=== PATIENT | female | born 1975 | race Caucasian/White ===

== ENCOUNTER 2018-09-19 01:57 | Observation (INO) | payer MEDICAID, OTHER ==
[2018-09-19 02:29] LABS: Bilirubin Negative (Negative); Blood, Urine Negative (Negative); Clarity CLEAR (Clear); Glucose, Urine (Dipstick) >=1000 mg/dL (Negative); Leukocyte Negative (Negative); Nitrite Negative (Negative); Protein, Urine (Dipstick) Negative (Neg-Trace); Urobilinogen 0.2 mg/dL (0.2-1.0)
[2018-09-19] MEDS ORDERED: HYDROcodone/Acetaminophen 5/325 mg Tablet ONE (02:42)
[2018-09-19 03:06] LABS: #Basophils 0.1 thou/uL (0.0-0.2); #Eosinphils 0.3 thou/uL (0.0-0.7); #Lymphocytes 3.1 thou/uL (1.20-3.40); #Monocytes 0.9 thou/uL (0.11-0.59); #Neutrophils 5.8 thou/uL (1.40-6.50); %Basophils 0.6 % (0.0-1.0); %Eosinophils 2.7 % (0.0-10.0); %Lymphocytes 31.2 % (21.0-51.0); %Monocytes 8.5 % (0.0-10.0); Hemoglobin 13.2 g/dL (12.0-16.0); Mean Corpuscular HGB CONC 33.7 g/dL (32.0-36.0); Mean Corpuscular Volume 86.3 fL (78.0-98.0); Mean Platelet Volume 7.6 fL (7.4-10.4); Platelet Count 193 thou/uL (130-400); RBC Distribution Width 13.2 % (11.5-14.5); Red Blood Cell (RBC) Count 4.54 mill/uL (4.20-5.40); White Blood Cell (WBC) Count 10.1 thou/uL (4.8-10.8)
[2018-09-19 03:44] LABS: ALT (SGPT) 55 U/L (8-55); AST (SGOT) 48 U/L (5-34); Albumin 4.1 g/dL (3.5-5.0); Alkaline Phosphatase 72 U/L (40-150); Anion Gap 15 mmol/L (10-20); BUN (Urea Nitrogen) 14 mg/dL (7.0-18.7); Bilirubin, Total 0.4 mg/dL (0.2-1.2); CK (CPK) 43 U/L (29-168); Calc. Creatinine Clearance 0 mL/min (70-130); Calcium 8.9 mg/dL (7.8-10.44); Carbon Dioxide 19 mmol/L (22-29); Chloride 102 mmol/L (98-107); Estimated GFR-MDRD 62; Globulin 2.9 g/dL (2.4-3.5); Glucose 401 mg/dL (70-105); Lipase 75 U/L (8-78); Potassium 3.9 mmol/L (3.5-5.1); Sodium 132 mmol/L (136-145)
--- NOTE | 2018-09-19 04:49 | PDOC.FPRHP ---
- History of Present Illness Chief Complaint: Chest Pain History of Present Illness: This is a 43 yo female with a pmh of HTN, HLD, 3 previous MIs with 4 stents placed who presents to the ED with a cc of chest pain. She reports the chest pain started ~4 hours [employer]. She reports taking 3 nitro with no relief from the pain. She reports the pain starts in her chest and radiates to her arm. She describes the pain as some fat person sitting on her chest and rates the pain as an 8/10. She endorses SOB but denies nausea or diaphoresis. She requested IV opioid pain medication multiple times during our interview. She endorses leaving AMA from multiple hospitals including the most recent hospitlalization in [place] where she reports she had a positive stress test. She also reports leaving on one occasion, 3 hours after receiving tPA. ED Course: En rout to hospital 4mg morphine, 4mg zofran, 324mg aspirin, - Allergies/Adverse Reactions Allergies Allergy/AdvReac Type Severity Reaction Status Date / Time amoxicillin Allergy Verified 09/19/18 07:22 cephalexin [From Keflex] Allergy Verified 09/19/18 07:22 ketorolac [From Toradol] Allergy Verified 09/19/18 07:22 nalbuphine [From Nubain] Allergy Verified 09/19/18 07:22 naproxen Allergy Verified 09/19/18 07:22 nitroglycerin Allergy Verified 09/19/18 07:22 [From Nitro-Bid] penicillin G Allergy Verified 09/19/18 07:22 vancomycin Allergy Verified 09/19/18 07:22 - Home Medications Medication Instructions Recorded Confirmed Type Atorvastatin Calcium 40 mg PO HS 09/19/18 09/19/18 History Insulin Detemir [Levemir Flextouch] 30 unit SQ DAILY 09/19/18 09/19/18 History Lisinopril 10 mg PO DAILY 09/19/18 09/19/18 History Pregabalin [Lyrica] 300 mg PO BID 09/19/18 09/19/18 History metFORMIN HCl [Metformin HCl] 1,000 mg PO BID 09/19/18 09/19/18 History - History PMHx: HTN, DM2, HLD, CAD PSHx: Stents placed FHx: Mother and father have history of [place] Social: Smoking history, now vaping - Review of Systems General: denies: fever/chills, weight/appetite/sleep changes, night sweats, fatigue Eyes: denies: eye pain, vision changes ENT: denies: nasal congestion, rhinorrhea Respiratory: reports: shortness of breath. denies: cough, congestion, exercise intolerance Cardiovascular: reports: chest pain. denies: palpitation, edema Gastrointestinal: denies: nausea, vomiting, diarrhea Genitourinary: denies: incontinence, dysuria Skin: denies: rashes, lesions Musculoskeletal: denies: pain, tenderness Neurological: denies: numbness, syncope Psychological: denies: anxiety, depression - Vital signs BP: 125/76 HR: 74 RR: 18 Tmax: 98.3 Pox: 98% on ra Wt: 98 kg - Physical Exam Constitutional: NAD, awake, alert and oriented, well developed HEENT: normocephalic and atraumatic, PERRLA, EOMI, grossly normal vision, grossly normal hearing, MMM Neck: FROM, trachea midline, no JVD Chest: no-tender to palpation, no lesions Heart: RRR, normal S1/S2, no murmurs/rubs/gallops Lungs: CTAB, no respiratory distress, no wheezing Abdomen: soft, non-tender, bowel sounds present Musculoskeletal: normal structure Neurological: CN II-XII intact Skin: capillary refill <2 seconds Heme/Lymphatic: no unusual bruising or bleeding, no purpura FMR H&P: Results - Labs Result Diagrams: 09/19/18 02:57 09/19/18 02:55 Lab results: WBC 10.1 thou/uL (4.8-10.8) 09/19/18 02:57 Hgb 13.2 g/dL (12.0-16.0) 09/19/18 02:57 Hct 39.2 % (36.0-47.0) 09/19/18 02:57 MCV 86.3 fL (78.0-98.0) 09/19/18 02:57 Plt Count 193 thou/uL (130-400) 09/19/18 02:57 Neutrophils % 57.0 % (42.0-75.0) 09/19/18 02:57 Sodium 132 mmol/L (136-145) L 09/19/18 02:55 Potassium 3.9 mmol/L (3.5-5.1) 09/19/18 02:55 Chloride 102 mmol/L (98-107) 09/19/18 02:55 Carbon Dioxide 19 mmol/L (22-29) L 09/19/18 02:55 BUN 14 mg/dL (7.0-18.7) 09/19/18 02:55 Creatinine 0.99 mg/dL (0.6-1.1) 09/19/18 02:55 Glucose 401 mg/dL (70-105) H 09/19/18 02:55 Calcium 8.9 mg/dL (7.8-10.44) 09/19/18 02:55 Total Bilirubin 0.4 mg/dL (0.2-1.2) 09/19/18 02:55 AST 48 U/L (5-34) H 09/19/18 02:55 ALT 55 U/L (8-55) 09/19/18 02:55 Alkaline Phosphatase 72 U/L (40-150) 09/19/18 02:55 Creatine Kinase 43 U/L (29-168) 09/19/18 02:55 Serum Total Protein 7.0 g/dL (6.0-8.3) 09/19/18 02:55 Albumin 4.1 g/dL (3.5-5.0) 09/19/18 02:55 Lipase 75 U/L (8-78) 09/19/18 02:55 Urine Ketones Negative mg/dL (Negative) 09/19/18 02:06 Urine Blood Negative (Negative) 09/19/18 02:06 Urine Nitrite Negative (Negative) 09/19/18 02:06 Ur Leukocyte Esterase Negative (Negative) 09/19/18 02:06 - EKG Interpretation EKG: NSR, no st elevations or depressions - Radiology Interpretation Chest x-ray Status: image reviewed by me (No acute intrathoracic process) FMR H&P: A/P - Plan This is a 43 yo female with a pmh of HTN, HLD, DM2, CAD with hx of stents Atypical chest pain rule out -Admit to [facility] -Heart score 3 -EKG shows no ST elevation or depression -Troponin negative x1, continue to trend x3 -Nitro PRN for pain -Plan to obtain records regarding positive stress test from [place] -Consult cardiolgy -Pt repeatedly requests IV opioid medication, allergies to NSAIDS and has received ~19 morphine equivalents prior to admission. Pt refuses tylenol for pain and requests additional medication to Bristol 5 offered. -Morphine PRN for breakthrough pain IDDM 2 -Poorly controlled, pt admits to pepsi addiction -Restart home medications -ACHS glu checks -Pending A1c -Will titrate insulin during hospital stay HTN -Continue home meds HLD -Continue home meds CAD -Continue home meds Hx of DVT and PEs -SCD for prophylaxis in light of possible cath, would transition if no plan for cardiac intervention Code: Full Prophylaxis: SCDs Family: None at bedside Fluids: NS 100 ml/hr Diet: NPO Disposition: home in 1-2 days PCP: Dr. Lee at [facility] in [place] FMR H&P: Upper Level - Plan Date/Time: 09/19/18 [id number] ISherry. Constantine Yu MD have evaluated this patient and agree with findings/plan as outlined by leadership intern resident. Pertinent changes/additions are listed here. 43 y/o F w/ PMHx of [place] x3 and CAD s/p stent placement x4 w/ positive stress test last week at outside hospital where she left AMA prior to cardiac catheterization. Characterized as L-sided chest pressure w/ radiation into the left arm, jaw, and into back 810. Also reports some associated SOB. No nausea , no diaphoresis. Pt reports she goes to the ER 1-2x a week for her chest pain back home. Trop <0.010 BG - 434 CXR NAD EKG NSR, non-specific ST-segment abnormalities. No T-wave inversions PE: Gen: Smiling, joking, laughing during interview Cards: RRR, no murmurs. Pulm: CTA b/l 66 y/o M w/: 1. Atypical Chest Pain (HEART 3) - Will admit to tele/obs with continuous cardiac monitoring - ASA given in ER - Check FLP and start on high intensity statin - Check A1c and TSH - Cont. to trend cardiac enzymes x 3 - Will touch base with cardiology in the AM for further recs given significant cardiac hx and reported positive stress last week w/o cardiac catheterization. As patient is unable to tell us which hospital she had this done at last week, we are unable to obtain these records. - I do have some concerns that patient is expressing drug seeking behavior given her multiple requests for IV narcotic pain medications from both the admitting team and ER physician, allergies to NSAIDs, and no improvement in sxs with any PO meds (nitro, Bristol). Pt also reportedly w/ positive stress last week at a hospital in [place] where she left AMA before cardiac cath, but unable to tell us which hospital this was so we can get records. She has received 4 mg of morphine, 100 mcg of fentanyl while en-route to the hospital and an additional Bristol 5 in the ER for a total of 19 MME's over the past few hours. 2. IDDM - Pt w/ elevated BG levels w/o signs of DKA/HHS - Nilesh check A1c and will place on home long acting insulin regimen w/ SSI for meals as I have concerns about her outpatient compliance 3. Other Chronic Medical Problems per leadership intern note Addendum - Attending - Attending Attestation Date/Time: 09/19/18 1410 I personally evaluated the patient and discussed the management with Dr. Scott and Rosemarie. See separate note. I agree with the History, Examination, Assessment and Plan documented above with any addition or exceptions noted below.
--- NOTE | 2018-09-19 06:38 | PDOC.EVN ---
Event Note - Event Note Event Note: Date/Time: 09/19/18 0633 I personally evaluated the patient and discussed the management with Aimee Grove. H&P pending I agree with the History, Examination, Assessment and Plan as discussed. Patient has refused non opioid pain meds. had some relief with morphine earlier. She reports near weekly Er visits in [place] for chest pain and reports always receiving morphine. She was upset that we were not giving her more morphine. We have ordered morphine on her admission orders which is part of our routine chest pain admission orders. She is content with this.
[2018-09-19 06:49] LABS: Troponin I Less than 0.010 ng/mL (< 0.028)
[2018-09-19 07:06] VITALS: BP 122/86; TEMP 97.9; BMI 38.7
[2018-09-19] MEDS ORDERED: Acetaminophen 325 MG TAB PO PRN (07:23)
[2018-09-19] MEDS ORDERED: Ondansetron ODT 4 MG TAB SL PRN (07:23)
[2018-09-19] MEDS ORDERED: Ondansetron PF 4 MG/2 ML Vial IVP PRN ×2 (07:23→07:36)
[2018-09-19] MEDS ORDERED: Insulin Glargine 20 UNITS in Pre-Filled Syringe 1 EACH SC SCH (07:36)
[2018-09-19] MEDS ORDERED: Sodium Chloride 0.9% 1,000 ML IV SCH (07:36)
[2018-09-19] MEDS ORDERED: HumaLOG 300 UNITS/3 ML VIAL SC PRN ×2 (07:36)
[2018-09-19] MEDS ORDERED: Dextrose 5% in Water 1,000 ML IV PRN (07:36)
[2018-09-19] MEDS ORDERED: Ondansetron ODT 4 MG TAB PO PRN (07:36)
[2018-09-19] MEDS ORDERED: Nitroglycerin 0.4 MG TAB (25 Tab Bottle) PO PRN (07:36)
[2018-09-19] MEDS ORDERED: Morphine 2 MG/ML SYRINGE SLOW IVP PRN (07:36)
[2018-09-19] MEDS ORDERED: Dextrose 50% Abboject 50 ML SYRINGE SLOW IVP PRN (07:36)
[2018-09-19] MEDS ORDERED: Morphine 4 MG/ML VIAL ONE (08:05)
--- NOTE | 2018-09-19 08:10 | PDOC.FM ---
- Subjective Subjective: Pt reports continued intermittent CP of same quality from presentation. No SOB no syncope. - Objective Vital Signs & Weight: Vital Signs (12 hours) Temp Pulse Resp BP Pulse Ox 09/19/18 07:05 97.9 F 84 16 122/86 97 Weight Weight 102.2 kg Result Diagrams: 09/19/18 02:57 09/19/18 02:55 Phys Exam - Physical Examination Constitutional: NAD HEENT: moist MMs, sclera anicteric Neck: no JVD, full ROM Respiratory: no wheezing, clear to auscultation bilateral Cardiovascular: RRR, no significant murmur Gastrointestinal: soft, non-tender Musculoskeletal: no edema, pulses present Neurological: normal sensation, moves all 4 limbs Psychiatric: normal affect, A&O x 3 Skin: no rash, normal turgor Dx/Plan (1) Chest pain Code(s): R07.9 - CHEST PAIN, UNSPECIFIED Status: Acute (2) HTN (hypertension) Code(s): I10 - ESSENTIAL (PRIMARY) HYPERTENSION Status: Acute (3) Diabetes Code(s): E11.9 - TYPE 2 DIABETES MELLITUS WITHOUT COMPLICATIONS Status: Acute - Plan Plan: Typical chest pain, likely 2/2 MSK vs. Anxiety vs. Drug seeking behavior A- trop negative x2, EKG wnl, HEART score 3. Pt has hx of frequent AMA departures from hospital including most recent one ~1week ago. Pt refuses NPO diet today despite explicit recommendations. Pt continues to refuse non opiate pain mgmt and requests further IV opiates P- trend last trop -consider outpt stress and cards consult -nitro prn for pain IDDM 2 A- Poorly controlled, pt admits to pepsi addiction P- Restart home medications -ACHS glu checks -Pending A1c HTN -Continue home meds HLD -Continue home meds CAD -Continue home meds Hx of DVT and PEs -SCD for prophylaxis in light of possible cath, would transition if no plan for cardiac intervention Code: Full PCP: Dr. Lee at [facility] in [place]
--- NOTE | 2018-09-19 08:11 | RAD ---
RADIOGRAPH CHEST 1 VIEW: DATE: 09/19/2018 HISTORY: 43-year-old female with chest pain FINDINGS: There are no airspace densities, pulmonary edema, pneumothorax, or cardiomegaly. The lateral costophr enic angles are sharp. IMPRESSION: No acute cardiopulmonary findings.
[2018-09-19] MEDS: Pregabalin 75 MG CAP PO SCH ×3 (08:43→12:23)
[2018-09-19] MEDS: Lisinopril 10 MG TAB PO SCH ×3 (08:45→12:22)
[2018-09-19] MEDS: metFORMIN 500 MG TAB PO SCH ×3 (08:45→12:23)
[2018-09-19] MEDS: Acetaminophen 500 MG TAB PO SCH ×2 (08:46→08:58)
[2018-09-19 09:27] LABS: Amphetamine Not Detected (NotDetected); Barbiturates Screen Not Detected (NotDetected); Benzodiazepine Screen Not Detected (NotDetected); Cocaine Metabolite Screen Not Detected (NotDetected); Medtox Control Line Valid? VALID (VALID); Medtox Reader # READER 1; Methadone Not Detected (NotDetected); Methamphetamine Not Detected (NotDetected); Opiate Screen Not Detected (NotDetected); Oxycodone Screen Not Detected (NotDetected); Phencyclidine (PCP) Not Detected (NotDetected); THC/Cannabinoid Screen Not Detected (NotDetected); Tricyclic Screen Not Detected (NotDetected)
--- NOTE | 2018-09-19 09:33 | PDOC.EVN ---
Event Note - Event Note Event Note: S: Called to pt room after DCing morphine. Explained to pt that morphine would not be medically indicated for her chest discomfort since she had negative trops and normal EKG, no evidence of acute AL. Pt became verbally agressive at this point stating that if she cannot get more morphine then she will be refusing any further workup for her pain and commanding everyone to "get out" of the room. Attempts were made to discuss her pain further and discuss workup of her pain and the risks of refusing stress test and cath but pt persisted that she will be leaving AMA. O: vitals continue to be wnl, physical exam refused A/P: Pt could benefit from cards consult considering the hx that she provided. She will be leaving AMA. It should be noted that pt exhibited many drug seeking behaviors during this hospitalization which will be outlined in more detail in discharge summary.
--- NOTE | 2018-09-19 11:20 | PDOC.EVN ---
Event Note - Event Note Event Note: upon realizing pt did not have a ride back to [place] pt refused to leave hospital. Pt stated she would refuse to leave AMA but would also refuse treatment or further workup of her medical condition. Pt is stable with negative trops, normal EKG, vitals and PE wnl. ACS has been ruled out and pt now continues to refuse further workup. Pt has continuously requested more morphine but now refuses IV and medical management. Medicare ride service was contacted and will provide pt with ride back to [place]. Pt states she plans close f/u with her PCP in [place]. Pt is stable for DC. Will DC.
[2018-09-19] MEDS ORDERED: Atorvastatin Calcium 40 MG TAB PO SCH (21:00)
[2018-09-20] MEDS ORDERED: Non-Formulary Item 1 EACH (Insulin Detemir [Levemir Flextouch] 30 UNIT) SQ SCH (09:00)
[2018-09-20] MEDS ORDERED: Insulin Glargine 30 UNITS in Pre-Filled Syringe 1 EACH SC SCH (09:00)
--- NOTE | 2018-09-23 00:54 | DIS ---
DATE OF ADMISSION: 09/19/2018 DATE OF DISCHARGE: 09/19/2018 RESIDENT: Roland Garcia MD ADMITTING ATTENDING: Joao Roberts MD DISCHARGE ATTENDING: Darryn Pina MD CONSULTS: None. PROCEDURES: On 09/19/2018, chest x-ray, impression, no acute cardiopulmonary findings. PRIMARY DIAGNOSIS: Typical chest pain, rule out acute coronary syndrome. SECONDARY DIAGNOSES: Insulin-dependent type 2 diabetes, hypertension, hyperlipidemia, coronary artery disease, drug-seeking behaviors, history of deep venous thrombosis and pulmonary embolism. DISCHARGE MEDICATIONS: 1. Lisinopril 10 mg p.o. daily. 2. Atorvastatin 20 mg p.o. at bedtime. 3. Lyrica 300 mg p.o. b.i.d. 4. Metformin 1000 mg p.o. b.i.d. 5. Levemir 30 units subcu daily. 6. Tylenol 1000 mg p.o. q.6 hours. DISCONTINUED MEDICATIONS: None. HISTORY OF PRESENT ILLNESS/HOSPITAL COURSE: This is a 43-year-old female, who presented from [facility] for typical chest pain. The patient had been recently stated that she had been recently discharged against medical advice from the hospital near [place], though she was unwilling to provide which hospital that was and on the way home on the bus, experienced the return of typical chest pain and so, the patient was airlifted to [place]. Meanwhile, receiving many opiates for pain control. On evaluation, the patient did state that she goes to the ER 1 to 2 times weekly to get opiate pain medications, particularly morphine for various pains. The patient specifically requested morphine. The patient was admitted for ACS rule out and had normal vitals, normal troponins x3, and normal EKG. Immediately upon arriving to her room, the patient ordered a subway sandwich despite being advised that it was absolutely imperative that she not eat so as to have a stress test with possible need for catheterization. The patient stated that she was simply too hungry to worry about that and would possibly be willing to get cath and stress the following day. The patient continued to request morphine for pain control, though she appeared to be in no pain on exam and by vital signs. Morphine was discontinued because it was not medically indicated as morphine would only be indicated for air hunger or acute SD pain. It was clear that this patient was not having an acute SD with normal troponins, normal EKG, and normal vital signs. The patient then refused any further medical service and stated she would be leaving against medical advice. Upon finding out that leaving AMA would also discontinue her benefits for travel vouchers to get her back to home in [place]. The patient stated she would refuse to leave AMA, but would also refuse to receive any further medical evaluation or help unless it was morphine. The details of these encounters are outlined in event notes with further discussion about her refusal of stress test and catheterization against medical advice. It was decided the patient could be discharged for outpatient followup as she was stable and ACS had been ruled out, though patient did refuse any further workup with stress. After discharge, the patient approached resident in [facility] and apologized for her erratic behavior and also stated that she just needed a cigarette and that she would recognize she had an opiate addiction. The patient stated that she had been referred to payroll specialist by her primary care physician in the past, but that she had refused all referrals as she had also made habit of smoking marijuana every day and was unwilling to quit that to receive opiates from pain management specialists. DISPOSITION: Stable. DISCHARGE INSTRUCTIONS: 1. Location: Home. 2. Activity: As tolerated. 3. Diet: Diabetic diet, heart healthy diet. 4. Followup: Follow up with primary care physician in 3 days. Job ID: [id number]
== END 2018-09-19 12:33 | disposition home or self-care (01) ==
LOC: ERS 01:57 → 2SW 03:55
PROVIDERS: ADMIT Family Medicine; ATTEND Family Medicine
DX: R07.89 Other chest pain (principal); I10 Essential (primary) hypertension; E78.5 Hyperlipidemia, unspecified; E11.9 Type 2 diabetes mellitus without complications; I25.10 Atherosclerotic heart disease of native coronary artery without angina pectoris; I25.2 Old myocardial infarction; F17.210 Nicotine dependence, cigarettes, uncomplicated; F17.290 Nicotine dependence, other tobacco product, uncomplicated; Z86.718 Personal history of other venous thrombosis and embolism; Z86.711 Personal history of pulmonary embolism; Z72.89 Other problems related to lifestyle; Z95.5 Presence of coronary angioplasty implant and graft; Z88.0 Allergy status to penicillin; Z88.1 Allergy status to other antibiotic agents; Z88.6 Allergy status to analgesic agent; Z88.5 Allergy status to narcotic agent; Z88.8 Allergy status to other drugs, medicaments and biological substances; Z79.4 Long term (current) use of insulin; Z79.899 Other long term (current) drug therapy
CPT/HCPCS: 36415; 36416; 71045; 80053; 80306; 81003; 82550; 83690; 84484; 85025; 93005; 94760; G0378; J1825; J2270